=== PATIENT | female | born 1935 | race Caucasian/White ===

== ENCOUNTER → 2016-07-05 | Outpatient (CLI) | payer MEDICARE, OTHER ==
[~2016-07-05] MED LIST: AMARYL PO; AMLODIPINE BESYL5 MG PO; ASPIRIN; ASPIRIN ENTERI325 M1 PO; ASPIRINEC; BAYER ASPIRIN325 M1 PO; BENICAR PO; CARTIA XT; CARVEDILOL12.5 MG PO; COREG PO; GLUCOPHAGE XR500 MG; HCTZ PO; LASIX20 MG PO; LEVEMIR100 U/ML; LEVOTHROID50 MCG PO; LEVOTHROID75 MCG PO; LIPITOR; LISINOPRIL; MAXZIDE 75/50 T1 TAB PO; NORVASC PO; PLAVIX PO; PLAVIX300 MG PO; PRAVASTATIN SOD80 MG PO; SIMVASTATIN40 MG PO; SYNTHROID PO; TRICOR PO; VASCEPA1 GM PO; ZEMPLAR1 MCG PO; ZETIA PO; ZOCOR PO; ZYLOPRIM100 MG PO
[2016-07-05 09:19] LABS: BILIRUBIN,TOTAL 0.7 mg/dL (0.2-2.0); BUN/CREATININE RATIO 15.83; CALCIUM SERUM 9.3 mg/dL (8.4-10.2); CREATININE SERUM 1.2 mg/dL (0.6-1.4); GLOM FILT RATE Estimated 42.7 mL/min (>60); PHOSPHOROUS 3.6 mg/dL (2.5-4.6); POTASSIUM 3.7 mmol/L (3.5-5.1); PROTEIN TOTAL SERUM 7.3 g/dL (6.0-8.3); URIC ACID 4.6 mg/dL (2.6-7.2)
== END | disposition home or self-care (01) ==
LOC: CLAB 08:28
PROVIDERS: Internal Medicine Nephrology
DX: N18.3 Chronic kidney disease, stage 3 (moderate) (principal); N25.81 Secondary hyperparathyroidism of renal origin
CPT/HCPCS: 36415; 80053; 82310; 83970; 84100; 84550

== ENCOUNTER → 2016-10-12 | Outpatient (CLI) | payer MEDICARE, OTHER ==
--- NOTE | ~2016-10-12 | US77 ---
[facility] A Service of [facility] RADIOLOGY TEXT RESULTS PATIENT: KARAN COMBS LOCATION: [facility] : [birth year] UNIT #: [id number] AGE: [address]: Mukund Osman MD SEX: F ORDER DR: [id number] [facility] [address] [place], [place] [address] [id number] O MR#: [id number] Acc #: [id number] NAME: KARAN COMBS : 03/25/1936 SEX: F STUDY DATE/TIME: 10/12/2016 10:53 UNIT: [facility] ROOM: STUDY DESCRIPTION: US Kidney Bilateral Complete Attending Physician: Nilsa Osman M.D. Referring Physician: Nilsa Osman M.D. Ordering Physician: Nilsa Osman M.D. Primary Care Physician: Jazmine Wang M.D. MEDICAL IMAGING REPORT This report is preliminary unless electronic signature is present EXA, Bilateral renal ultrasound DATE: 10/12/2016 HISTORY 80-year-old female with chronic kidney disease stage III. Diabetes mellitus, insulin dependent. Hypertension. Hyperlipidemia. COMPARISON Renal ultrasound with color Doppler imaging 08/14/2009. FINDINGS Right kidney measures 9.7 x 5.5 x 5.4 cm. The left kidney measures 10.0 x 5.21 x 4.8 cm. Both kidneys demonstrate cortical thinning but normal cortical echotexture. Echogenic focus previously marked within the right upper renal pole on the 08/06/2009 ultrasound has no abnormal correlate today. No shadowing renal stone or hydronephrosis is identified on either side, no renal cystic lesions are evident. The urinary bladder appears unremarkable. No hydronephrosis. IMPRESSION 1. Mild bilateral renal cortical thinning appears similar to the 08/14/2009 examination. Normal cortical echotexture is maintained. 2. No hydronephrosis. 3. Unremarkable appearance of the urinary bladder. Dictated by... Ofe Bartlett M.D. THIS IS AN ELECTRONICALLY VERIFIED REPORT [facility] A Service of [facility] RADIOLOGY TEXT RESULTS PATIENT: KARAN COMBS LOCATION: [facility] : [birth year] UNIT #: [id number] AGE: [address]: Mukund Osman MD SEX: F ORDER DR: Ofe Bartlett M.D. at 10/14/2016 9:33 PM MABEL/arti TD: 10/12/2016 13:51 JOB #: [id number] MEDICAL IMAGING REPORT Page 1 of 1 COPY
[2016-10-12 11:41] LABS: URINE APPEARANCE CLEAR; URINE BILIRUBIN NEG (NEG); URINE BLOOD 3+ (NEG); URINE COLOR YELLOW; URINE GLUCOSE 250 MG/DL (NEG); URINE KETONE NEG (NEG); URINE LEUKOCYTE ESTERASE NEG (NEG); URINE NITRATE NEG (NEG); URINE PROTEIN 2+ (NEG); URINE SPECIFIC GRAVITY 1.012 (1.003-1.035)
[2016-10-12 11:43] LABS: BILIRUBIN,TOTAL 0.9 mg/dL (0.2-2.0); BUN/CREATININE RATIO 12.94; CALCIUM SERUM 9.5 mg/dL (8.4-10.2); CREATININE SERUM 1.7 mg/dL (0.6-1.4); GLOM FILT RATE Estimated 28.2 mL/min (>60); PHOSPHOROUS 2.7 mg/dL (2.5-4.6); POTASSIUM 3.2 mmol/L (3.5-5.1); PROTEIN TOTAL SERUM 7.4 g/dL (6.0-8.3); URIC ACID 2.3 mg/dL (2.6-7.2)
[2016-10-12 11:44] LABS: URBCS1 AUWI 0-2 /[HPF] (0-2); URINE BACTERIA AUWI NEG (NEGATIVE); URINE SQUAMOUS EPITHELIAL CELL OCC /[HPF]; UWBCS1 AUWI 0-2 (0-5)
[2016-10-12 11:48] LABS: URINE SOURCE CLEAN CATCH
[2016-10-15 09:21] LABS: CALCIUM (PTHINTACT) 9.7 mg/dL (8.6-10.4)
== END | disposition home or self-care (01) ==
LOC: CLAB 09:51
PROVIDERS: Internal Medicine Nephrology
DX: I12.9 Hypertensive chronic kidney disease with stage 1 through stage 4 chronic kidney disease, or unspecified chronic kidney disease (principal); E11.22 Type 2 diabetes mellitus with diabetic chronic kidney disease; N18.3 Chronic kidney disease, stage 3 (moderate); N25.81 Secondary hyperparathyroidism of renal origin; R31.9 Hematuria, unspecified
CPT/HCPCS: 36415; 76770; 80053; 81003; 82310; 83970; 84100; 84550; 87086

== ENCOUNTER → 2016-11-18 | Outpatient (CLI) | payer MEDICARE, OTHER ==
--- NOTE | ~2016-11-18 | US37 ---
[facility] A Service of [facility] RADIOLOGY TEXT RESULTS PATIENT: KARAN COMBS LOCATION: [facility] : [birth year] UNIT #: [id number] AGE: [address]: Jazmine Wang MD SEX: F ORDER DR: [id number] [facility] [address] [place], [place] [address] [id number] O MR#: [id number] Acc #: [id number] NAME: KARAN COMBS : 03/25/1936 SEX: F STUDY DATE/TIME: 11/18/2016 14:12 UNIT: [facility] ROOM: STUDY DESCRIPTION: US Carotid W/Doppler Bilateral Attending Physician: Jazmine Wang M.D. Referring Physician: Jazmine Wang M.D. Ordering Physician: Jazmine Wang M.D. Primary Care Physician: Jazmine Wang M.D. MEDICAL IMAGING REPORT This report is preliminary unless electronic signature is present DATE OF EXAM 11/18/2016 REASON FOR EXAM Dizziness. EXAM Bilateral carotid Doppler. FINDINGS The right common, internal and external carotid arteries are patent. There is minimal to mild atherosclerotic plaque noted diffusely throughout. Velocity of the common carotid artery is 87 cm/sec. Peak systolic velocity of the right proximal internal carotid artery is 110 cm/sec with an end-diastolic velocity of 31 cm/sec for an ICA:CCA ratio of 1.26. External carotid artery velocity of 138 cm/sec. The vertebral artery is visualized with antegrade flow. The left common internal and external carotid arteries are patent with mild diffuse plaque throughout. The velocity of the common carotid artery is 98 cm/sec. Peak systolic velocity of the left proximal internal carotid artery is 174 cm/sec with an end-diastolic velocity of 51 cm/sec for an ICA:CCA ratio of 1.75. External carotid artery velocity of 164 cm/sec. The vertebral artery is visualized with antegrade flow. IMPRESSION 1. Less than 50% stenosis of the right internal carotid artery, and 50 to 69% stenosis of the left internal carotid artery. 2. No stenosis of the right external carotid artery but elevated velocity of the left consistent with stenosis. 3. Antegrade flow of the vertebral arteries. STS. [facility] A Service of [facility] RADIOLOGY TEXT RESULTS PATIENT: KARAN COMBS LOCATION: [facility] : [birth year] UNIT #: [id number] AGE: [address]: Jazmine Wang MD SEX: F ORDER DR: Dictated by... Kameron Casas M.D. THIS IS AN ELECTRONICALLY VERIFIED REPORT Kameron Casas M.D. at 11/23/2016 6:36 AM JESSEE/lane TD: 11/18/2016 21:50 JOB #: [id number] MEDICAL IMAGING REPORT Page 1 of 1 COPY
== END | disposition home or self-care (01) ==
LOC: CNIV 13:31
DX: R42 Dizziness and giddiness (principal); I65.23 Occlusion and stenosis of bilateral carotid arteries
CPT/HCPCS: 93880